=== PATIENT | male | born 1940 | race Caucasian/White ===

== ENCOUNTER → 2017-01-10 | Outpatient (CLI) | payer MEDICARE, OTHER ==
[2017-01-10 09:17] LABS: CH 30.8; CHCM 33.9; HCT 45.6 % (39.0-53.0); HDW 2.62; HGB 15.8 gm/dL (13.0-17.5); MCH 31.5 pg (25.0-35.0); MCHC 34.6 g/dL (31.0-37.0); MCV 91.2 fL (80.0-100.0); Mean Platelet Volume 7.4; RDW 12.6 % (11.5-15.5); WBC 7.2 k/uL (3.8-10.6)
[2017-01-10 09:18] LABS: Appearance,Urine Clear (Clear); Bilirubin,Urine Negative (Negative); Glucose,Urine (UA) Negative (Negative); Ketones,Urine Negative (Negative); Leukocyte Esterase,Urine Negative (Negative); Nitrite,Urine Negative (Negative); Protein,Urine Negative (Negative); Specific Gravity,Urine 1.014 (1.001-1.035); UA Billing (MACRO vs. MICRO) CHEM; Urobilinogen,Urine <2.0 mg/dL (<2.0)
[2017-01-10 10:17] LABS: ALT 49 U/L (21-72); AST 29 U/L (17-59); Alkaline Phosphatase 118 U/L (38-126); Anion Gap 9 mmol/L; Blood Urea Nitrogen 29 mg/dL (9-20); Calcium 9.5 mg/dL (8.4-10.2); Carbon Dioxide 27 mmol/L (22-30); Chloride 106 mmol/L (98-107); Cholesterol 174 mg/dL (<200); Glucose 105 mg/dL (74-99); HDL Cholesterol 45 mg/dL (40-60); Non-African American GFR(MDRD) >60 (>60 ml/min/1.73 sqM); Potassium 4.5 mmol/L (3.5-5.1); Sodium 142 mmol/L (137-145); Triglycerides 119 mg/dL (<150)
== END | disposition home or self-care (01) ==
LOC: LABWHC1 08:50
PROVIDERS: ATTEND Internal Medicine
DX: Z00.00 Encounter for general adult medical examination without abnormal findings (principal); E78.5 Hyperlipidemia, unspecified; I10 Essential (primary) hypertension; Z12.5 Encounter for screening for malignant neoplasm of prostate
CPT/HCPCS: 80061; 80053; 85027; 81003; 36415; G0103

== ENCOUNTER 2018-05-19 10:31 | Emergency (ER) | payer MEDICARE, OTHER ==
[2018-05-19 10:49] VITALS: BP 128/86; PULSE 68; RESP 20; TEMP 97.8
--- NOTE | 2018-05-19 11:44 | ED ---
General Adult HPI - General Chief complaint: ENT Stated complaint: nosebleed x 2 days sent by Time Seen by Provider: 05/19/18 11:17 Source: patient, RN notes reviewed Mode of arrival: ambulatory Limitations: no limitations - History of Present Illness Initial comments: Patient 77-year-old male presenting to the emergency room today with a chief complaint of epistaxis. Patient states that he's had nosebleeds off and on over the last 3 days. Patient does admit that bleeding started again this morning when he woke up. Patient states he is able to get the bleeding to stop. States that not having any active bleeding at this time. Patient does admit to nosebleeds in the past. Patient denies any other complaints or symptoms at this time. They do admit the child to make an appointment with ENT but were unable to get into the office today so they came here to the emergency room. Patient's not on any blood thinners. - Related Data Home Medications Medication Instructions Recorded Confirmed Acetaminophen Tab [Tylenol] 325 mg PO Q6HR 05/19/18 05/19/18 Enalapril/Hydrochlorothiazide 1 tab PO DAILY 05/19/18 05/19/18 [Vaseretic 5-12.5 mg] [facility] (Unknown) 1 drop LEFT EYE BID 05/19/18 Zyquill (Unknown) 1 tab PO DAILY PRN 05/19/18 05/19/18 Allergies Allergy/AdvReac Type Severity Reaction Status Date / Time No Known Allergies Allergy Verified 05/19/18 11:28 Review of Systems ROS Statement: Those systems with pertinent positive or pertinent negative responses have been documented in the HPI. ROS Other: All systems not noted in ROS Statement are negative. Past Medical History Past Medical History: Hypertension History of Any Multi-Drug Resistant Organisms: None Reported Past Psychological History: No Psychological Hx Reported Smoking Status: Never smoker Past Alcohol Use History: Rare Past Drug Use History: None Reported General Exam - General Exam Comments Initial Comments: General: The patient is awake and alert, in no distress, and does not appear acutely ill. Eye: Pupils are equal, round and reactive to light, extra-ocular movements are intact. No nystagmus. There is normal conjunctiva bilaterally. No signs of icterus. Ears, nose, mouth and throat: There are moist mucous membranes and no oral lesions. Patient has no active bleeding. Dry blood in the right nostril. Posterior pharynx clear. Neck: The neck is supple, there is no tenderness or JVD. Musculoskeletal: Normal ROM, no tenderness. Strength 5/5. Sensation intact. Pulses equal bilaterally 2+. Neurological: A&O x 3. CN II-XII intact, There are no obvious motor or sensory deficits. Coordination appears grossly intact. Speech is normal. Skin: Skin is warm and dry and no rashes or lesions are noted. Psychiatric: Cooperative, appropriate mood & affect, normal judgment. Limitations: no limitations Course Vital Signs 05/19/18 10:46 Temperature 97.8 F Pulse Rate 68 Respiratory 20 Rate Blood Pressure 128/86 O2 Sat by Pulse 98 Oximetry Medical Decision Making - Medical Decision Making Patient has no active bleeding here in the emergency room. His vitals are stable. He is not on any blood thinners. Patient will be discharged home to follow up with ENT. Patient is advised to use nasal clamp bleeding recurs. Advised return here to the emergency room symptoms increase or worsen or for any other concerns. Disposition Clinical Impression: Epistaxis Disposition: HOME SELF-CARE Condition: Good Instructions: Nosebleed (ED) Additional Instructions: Please use nasal clamp if bleeding recurs. Please leave it in place for 20 minutes. If bleeding uncontrolled please return here to the emergency room. Please try to follow-up with ENT over the next 2 days as discussed. Is patient prescribed a controlled substance at d/c from ED?: No Referrals: Jose Jones MD [Primary Care Provider] - 1-2 days Andrew Turner MD [STAFF PHYSICIAN] - 1-2 days Time of Disposition: 11:43
== END 2018-05-19 12:03 | disposition home or self-care (01) ==
LOC: EC 10:31
DX: R04.0 Epistaxis (principal); I10 Essential (primary) hypertension; Z79.899 Other long term (current) drug therapy
CPT/HCPCS: 99283

== ENCOUNTER 2019-05-24 09:45 | Emergency (ER) | payer MEDICARE, OTHER ==
[2019-05-24] MEDS ORDERED: ONDANSETRON 4 MG/2 ML VIAL IVP STA (10:43)
[2019-05-24] MEDS ORDERED: KETOROLAC 30 MG/ML 1 ML VIAL IVP STA (10:43)
[2019-05-24] MEDS ORDERED: SODIUM CHLORIDE 0.9% 1,000 ML IV STA (10:43)
[2019-05-24 11:08] LABS: Basophils % (A) 0 %; Eosinophils # (A) 0.1 k/uL (0-0.7); Eosinophils % (A) 1 %; HCT 47.4 % (39.0-53.0); HGB 16.4 gm/dL (13.0-17.5); Lymphocytes # (A) 1.2 k/uL (1.0-4.8); Lymphocytes % (A) 11 %; MCH 31.5 pg (25.0-35.0); MCHC 34.5 g/dL (31.0-37.0); MCV 91.4 fL (80.0-100.0); Mean Platelet Volume 8.3; Monocytes # (A) 0.6 k/uL (0-1.0); Monocytes % (A) 5 %; Neutrophils # (A) 9.6 k/uL (1.3-7.7); Neutrophils % (A) 83 %; Platelet Count 153 k/uL (150-450); RBC 5.19 m/uL (4.30-5.90); RDW 12.5 % (11.5-15.5); WBC 11.5 k/uL (3.8-10.6)
[2019-05-24 11:18] LABS: Partial Thromboplastin Time 26.1 sec (22.0-30.0); Prothrombin Time 10.7 sec (9.0-12.0)
[2019-05-24 11:20] LABS: Albumin 4.2 g/dL (3.5-5.0); Calcium 9.6 mg/dL (8.4-10.2); Potassium 4.3 mmol/L (3.5-5.1); Total Bilirubin 2.3 mg/dL (0.2-1.3); Total Protein 7.2 g/dL (6.3-8.2)
--- NOTE | 2019-05-24 11:33 | CT ---
EXAMINATION TYPE: CT abdomen pelvis wo con DATE OF EXAM: 05/24/2019 COMPARISON: None HISTORY: Lt flank pain CT DLP: 880.6 mGycm Automated exposure control for dose reduction was used. TECHNIQUE: Helical acquisition of images was performed from the lung bases through the pelvis. FINDINGS: LUNG BASES: Bibasilar subsegmental atelectasis. Heart is enlarged. Trace pericardial fluid. Small hia nabil hernia. LIVER/GB: Anterior position of the gallbladder without cholelithiasis. Unenhanced liver is unremarkab le. PANCREAS: No significant abnormality is seen. SPLEEN: No significant abnormality is seen. ADRENALS: No significant abnormality is seen. KIDNEYS: There is an obstructing left mid ureteral calculus measuring 3 mm. There appears to create m ild hydronephrosis however there is suboptimal discernment of degree of hydronephrosis given the susp ected bilateral renal sinus cysts and lack of contrast. On the right there is dilatation of the renal sinus and upper pole collecting system with suspicion for renal sinus cysts on this side as well. Owusu perimposed. Hyperdense 1.2 cm right lower pole partially exophytic renal lesion is marked on image 73. 2.6 cm ant erior midpole right renal cyst is also seen. Bilateral nonspecific perinephric fat stranding. Uretero pelvic junction obstruction is possible FREE AIR: No free air is visualized ADENOPATHY: No greater than 1 cm short axis lymph nodes in the abdomen or pelvis. REPRODUCTIVE ORGANS: Prostate gland is mildly enlarged measuring 5.5 cm in transverse dimension URINARY BLADDER: There is some low-density fat attenuation of the anterior urinary bladder near a ur achal remnant anteriorly. This could be chronic fat deposition from chronic cystitis. This could be f urther assessed with CT cystography or direct visualization. OSSEOUS STRUCTURES: Nonspecific sclerotic lesion of the left femoral neck. This may represent a smal l bone island. Moderate degenerative changes of the spine. Very minimal anterolisthesis of L4 on L5 i s likely on a degenerative basis. BOWEL: Small hiatal hernia. Colonic diverticulosis without evidence of diverticulitis. Appendix is w ithin normal limits. Some lipomatous hypertrophy of the ileocecal valve. IMPRESSION: 1. OBSTRUCTING 3 MM LEFT MID URETERAL CALCULUS CREATING AT LEAST MILD LEFT-SIDED HYDRONEPHROSIS. DEGR EE OF HYDRONEPHROSIS IS DIFFICULT TO DISTINGUISH GIVEN THE MULTIPLE SUSPECTED RENAL SINUS CYSTS. 2. INDETERMINATE RIGHT RENAL LESION MEASURING 1.2 CM FOR WHICH FURTHER NONEMERGENT CHARACTERIZATION W ITH THREE-PHASE ENHANCED CT ABDOMEN IS RECOMMENDED. 3. URACHAL REMNANT IS SEEN WITH SOME ADJACENT FAT ATTENUATION, POSSIBLY ON THE BASIS OF CHRONIC CYSTI TIS. THIS COULD BE FURTHER EVALUATED WITH CT CYSTOGRAM OR DIRECT VISUALIZATION. 4. DILATED RIGHT RENAL PELVIS WITH SUSPECTED RENAL SINUS CYSTS. DILATED PELVIS COULD BE ON THE BASIS OF URETERAL STRICTURE.
[2019-05-24 12:50] LABS: Appearance,Urine Clear (Clear); Bilirubin,Urine Negative (Negative); Blood,Urine Moderate (Negative); Color,Urine Yellow; Glucose,Urine (UA) Negative (Negative); Ketones,Urine Negative (Negative); Leukocyte Esterase,Urine Negative (Negative); Mucus,Urine Few /hpf; Nitrite,Urine Negative (Negative); Protein,Urine Trace (Negative); RBC,Urine >182 /hpf (0-5); Specific Gravity,Urine 1.023 (1.001-1.035); Urobilinogen,Urine <2.0 mg/dL (<2.0); WBC,Urine 3 /hpf (0-5)
--- NOTE | 2019-05-24 13:32 | ED ---
Abdominal Pain HPI - General Chief Complaint: Abdominal Pain Stated Complaint: kidney stones Time Seen by Provider: 05/24/19 09:45 Source: patient, family Mode of arrival: ambulatory Limitations: no limitations - History of Present Illness Initial Comments: The patient is an 78-year-old male past medical history of hypertension presents emergency room with reported left flank pain. The pain started on Thursday. He states that it wraps around to his left lower quadrant. It is described as a sharp shooting pain. No history of similar in the past. Denies any associated urinary changes to include dysuria, hematuria or difficulty voiding. Denies any changes in his bowel movements include diarrhea, constipation, stools or hematochezia. Last bowel movement was this morning. He did see his primary care physician, Dr. Jones in office yesterday. Dr. Jones did run blood work and a urinalysis. He was told that it was either diverticulitis or kidney stones. He is placed on tramadol and an antibiotic. The patient has been taking medications as directed however reports that his pain is still 7 out of 10. He did for presents emergency room today for further pain control and evaluation. States he has had dry heaves without vomiting. Denies hematemesis. Denies any chest pain or shortness. No history of kidney stones in the past. No abdominal trauma. There are no alleviating, precipitating or modifying factors - Related Data Home Medications Medication Instructions Recorded Confirmed Enalapril/Hydrochlorothiazide 1 tab PO DAILY 05/19/18 05/25/19 [Vaseretic 5-12.5 mg] Brimonidine Tartrate [Alphagan P 1 drops LEFT EYE BID 05/25/19 05/25/19 0.2% Ophth Soln] Latanoprost/Pf [Latanoprost 0.005% 1 drop BOTH EYES DAILY 05/25/19 05/25/19 Eye Drop] Previous Rx's Medication Instructions Recorded Hydrocodone/Acetaminophen [Bristol 1 tab PO Q6HR PRN #12 tab 05/24/19 5-325] Tamsulosin [Flomax] 0.4 mg PO DAILY #7 cap 05/24/19 Apixaban [Eliquis] 5 mg PO BID #60 tab 05/28/19 Metoprolol Tartrate [Lopressor] 25 mg PO BID #60 tab 05/28/19 Allergies Allergy/AdvReac Type Severity Reaction Status Date / Time No Known Allergies Allergy Verified 05/25/19 18:08 Review of Systems ROS Statement: Those systems with pertinent positive or pertinent negative responses have been documented in the HPI. ROS Other: All systems not noted in ROS Statement are negative. Past Medical History Past Medical History: Hypertension Additional Past Medical History / Comment(s): glaucoma History of Any Multi-Drug Resistant Organisms: None Reported Past Surgical History: No Surgical Hx Reported Past Psychological History: No Psychological Hx Reported Smoking Status: Never smoker Past Alcohol Use History: Rare Past Drug Use History: None Reported General Exam Limitations: no limitations General appearance: alert, in distress Head exam: Present: atraumatic, normocephalic, normal inspection Eye exam: Present: normal appearance, PERRL, EOMI. Absent: scleral icterus, conjunctival injection, periorbital swelling ENT exam: Present: normal exam, mucous membranes moist Neck exam: Present: normal inspection. Absent: tenderness, meningismus, lymphadenopathy Respiratory exam: Present: normal lung sounds bilaterally. Absent: respiratory distress, wheezes, rales, rhonchi, stridor Cardiovascular Exam: Present: regular rate, normal rhythm, normal heart sounds. Absent: systolic murmur, diastolic murmur, rubs, gallop, clicks GI/Abdominal exam: Present: soft, tenderness (left flank and llq), normal bowel sounds. Absent: distended, guarding, rebound, rigid Extremities exam: Present: normal inspection, full ROM, normal capillary refill. Absent: tenderness, pedal edema, joint swelling, calf tenderness Back exam: Present: normal inspection Neurological exam: Present: alert, oriented X3, CN II-XII intact Psychiatric exam: Present: normal affect, normal mood Skin exam: Present: warm, dry, intact, normal color. Absent: rash Course Vital Signs 05/24/19 05/24/19 05/24/19 09:46 12:28 13:45 Temperature 97.7 F 97.2 F L Pulse Rate 95 71 68 Respiratory 18 20 18 Rate Blood Pressure 120/82 118/73 122/70 O2 Sat by Pulse 95 97 97 Oximetry Medical Decision Making - Medical Decision Making Upon arrival the patient was placed into room 19. A thorough history and physical exam was performed. IV is established. Patient was given 30 mg of Toradol for pain control and 4 mg of Zofran for nausea. To provide the patient with a liter bolus of normal saline. Laboratory studies were conducted. The patient was sent over for CT of his abdomen and pelvis. CBC shows white blood for count of 11.5. Coags are normal. Creatinine elevated at 2.0 from a bas tamar of 1.3. Urinalysis shows moderate blood, greater than 182 red blood cells, few mucus without bacteria. CT of the patient's abdomen and pelvis demonstrates obstructing 3 mm left mid ureteral calculus creating increased mild left sided hydronephrosis. Indeterminate right renal lesion measuring 1.2 cm. Dilated right renal pelvis a suspected renal sinus cyst. I discussed results with the patient. He is reevaluated and does have improvement in his pain and nausea. I called and discussed the case with Dr. Perez who stated that the patient can go home if his pain is controlled. He needs to follow-up with him this week. He requested I place him on Flomax and give him something for pain control. The patient is placed on Bristol. He does sign an opioid start talking form. Side effect profile was discussed with the patient. The patient will be discharged home and given follow-up information for Dr. Perez's office. If he has any new or worsening symptoms he should return to the emergency room. I did stress the patient's daily from Toradol because of his acute renal failure must have lab studies performed to ensure improvement in his kidney function. The patient is given a strainer. The patient was discharged home in stable condition - Lab Data Result diagrams: 05/24/19 10:11 05/24/19 10:11 Lab Results 05/24/19 05/24/19 05/24/19 Range/Units 10:11 10:11 10:11 WBC 11.5 H (3.8-10.6) k/uL RBC 5.19 (4.30-5.90) m/uL Hgb 16.4 (13.0-17.5) gm/dL Hct 47.4 (39.0-53.0) % MCV 91.4 (80.0-100.0) fL MCH 31.5 (25.0-35.0) pg MCHC 34.5 (31.0-37.0) g/dL RDW 12.5 (11.5-15.5) % Plt Count 153 (150-450) k/uL Neutrophils % 83 % Lymphocytes % 11 % Monocytes % 5 % Eosinophils % 1 % Basophils % 0 % Neutrophils # 9.6 H (1.3-7.7) k/uL Lymphocytes # 1.2 (1.0-4.8) k/uL Monocytes # 0.6 (0-1.0) k/uL Eosinophils # 0.1 (0-0.7) k/uL Basophils # 0.0 (0-0.2) k/uL PT (9.0-12.0) sec INR (<1.2) APTT (22.0-30.0) sec Sodium 143 (137-145) mmol/L Potassium 4.3 (3.5-5.1) mmol/L Chloride 104 (98-107) mmol/L Carbon Dioxide 28 (22-30) mmol/L Anion Gap 11 mmol/L BUN 45 H (9-20) mg/dL Creatinine 2.05 H (0.66-1.25) mg/dL Est GFR (CKD-EPI)AfAm 34 (>60 ml/min/1.73 sqM) Est GFR (CKD-EPI)NonAf 30 (>60 ml/min/1.73 sqM) Glucose 109 H (74-99) mg/dL Plasma Lactic Acid Daniel 1.4 (0.7-2.0) mmol/L Calcium 9.6 (8.4-10.2) mg/dL Total Bilirubin 2.3 H (0.2-1.3) mg/dL AST 24 (17-59) U/L ALT 34 (21-72) U/L Alkaline Phosphatase 92 (38-126) U/L Total Protein 7.2 (6.3-8.2) g/dL Albumin 4.2 (3.5-5.0) g/dL Lipase 44 (23-300) U/L Urine Color Urine Appearance (Clear) Urine pH (5.0-8.0) Ur Specific Mose[place] (1.001-1.035) Urine Protein (Negative) Urine Glucose (UA) (Negative) Urine Ketones (Negative) Urine Blood (Negative) Urine Nitrite (Negative) Urine Bilirubin (Negative) Urine Urobilinogen (<2.0) mg/dL Ur Leukocyte Esterase (Negative) Urine RBC (0-5) /hpf Urine WBC (0-5) /hpf Urine Mucus (None) /hpf 12/10/19 12/10/19 Range/Units 10:11 12:32 WBC (3.8-10.6) k/uL RBC (4.30-5.90) m/uL Hgb (13.0-17.5) gm/dL Hct (39.0-53.0) % MCV (80.0-100.0) fL MCH (25.0-35.0) pg MCHC (31.0-37.0) g/dL RDW (11.5-15.5) % Plt Count (150-450) k/uL Neutrophils % % Lymphocytes % % Monocytes % % Eosinophils % % Basophils % % Neutrophils # (1.3-7.7) k/uL Lymphocytes # (1.0-4.8) k/uL Monocytes # (0-1.0) k/uL Eosinophils # (0-0.7) k/uL Basophils # (0-0.2) k/uL PT 10.7 (9.0-12.0) sec INR 1.0 (<1.2) APTT 26.1 (22.0-30.0) sec Sodium (137-145) mmol/L Potassium (3.5-5.1) mmol/L Chloride (98-107) mmol/L Carbon Dioxide (22-30) mmol/L Anion Gap mmol/L BUN (9-20) mg/dL Creatinine (0.66-1.25) mg/dL Est GFR (CKD-EPI)AfAm (>60 ml/min/1.73 sqM) Est GFR (CKD-EPI)NonAf (>60 ml/min/1.73 sqM) Glucose (74-99) mg/dL Plasma Lactic Acid Daniel (0.7-2.0) mmol/L Calcium (8.4-10.2) mg/dL Total Bilirubin (0.2-1.3) mg/dL AST (17-59) U/L ALT (21-72) U/L Alkaline Phosphatase (38-126) U/L Total Protein (6.3-8.2) g/dL Albumin (3.5-5.0) g/dL Lipase (23-300) U/L Urine Color Yellow Urine Appearance Clear (Clear) Urine pH 5.0 (5.0-8.0) Ur Specific [place] 1.023 (1.001-1.035) Urine Protein Trace H (Negative) Urine Glucose (UA) Negative (Negative) Urine Ketones Negative (Negative) Urine Blood Moderate H (Negative) Urine Nitrite Negative (Negative) Urine Bilirubin Negative (Negative) Urine Urobilinogen <2.0 (<2.0) mg/dL Ur Leukocyte Esterase Negative (Negative) Urine RBC >182 H (0-5) /hpf Urine WBC 3 (0-5) /hpf Urine Mucus Few H (None) /hpf Disposition Clinical Impression: Left ureteral stone, YNES (acute kidney injury) Disposition: HOME SELF-CARE Condition: Stable Instructions (If sedation given, give patient instructions): Kidney Stones (ED) Additional Instructions: Please call and make an appointment with urologist. Strain all urine. You need to have repeat blood work to ensure that your kidney function is normal eyes. Return to the emergency room for any new or worsening symptoms Prescriptions: Tamsulosin [Flomax] 0.4 mg PO DAILY #7 cap Hydrocodone/Acetaminophen [Bristol 5-325] 1 tab PO Q6HR PRN #12 tab PRN Reason: Pain Is patient prescribed a controlled substance at d/c from ED?: Yes When asked, does pt state using other controlled substances?: No If prescribed controlled substance>3 days was MAPS reviewed?: Prescribed <3 Days If opioid is for acute pain is fill amount 7 days or less?: Yes If Rx opioid, was Start Talking consent form obtained?: Yes Referrals: Jose Jones MD [Primary Care Provider] - 1-2 days Donell Smith MD [STAFF PHYSICIAN] - 1-2 days Time of Disposition: 13:32
[2019-05-24 13:51] VITALS: BP 122/70; PULSE 68; RESP 18; TEMP 97.2
== END 2019-05-24 13:45 | disposition home or self-care (01) ==
LOC: EC 09:45
DX: N13.2 Hydronephrosis with renal and ureteral calculous obstruction (principal); N17.9 Acute kidney failure, unspecified; N28.89 Other specified disorders of kidney and ureter; I10 Essential (primary) hypertension; H40.9 Unspecified glaucoma; Z79.899 Other long term (current) drug therapy
CPT/HCPCS: 99284; 96374; 96375; 96361; 36415; 80053; 83605; 83690; 85025; 85610; 85730; 81001; 74176; J2405; J1885

== ENCOUNTER 2019-05-25 14:29 | Observation (INO) | payer MEDICARE, OTHER ==
[2019-05-25] MEDS ORDERED: MORPHINE SULFATE 4 MG/ML SYRINGE IVP STA (14:43)
[2019-05-25] MEDS ORDERED: KETOROLAC 30 MG/ML 1 ML VIAL IVP STA (14:43)
[2019-05-25] MEDS ORDERED: ONDANSETRON 4 MG/2 ML VIAL IVP STA (14:43)
[2019-05-25 15:03] LABS: Basophils % (A) 0 %; Eosinophils # (A) 0.2 k/uL (0-0.7); Eosinophils % (A) 1 %; HCT 45.2 % (39.0-53.0); HGB 14.9 gm/dL (13.0-17.5); Lymphocytes # (A) 0.6 k/uL (1.0-4.8); Lymphocytes % (A) 5 %; MCHC 33.1 g/dL (31.0-37.0); MCV 90.5 fL (80.0-100.0); Mean Platelet Volume 8.5; Monocytes # (A) 0.6 k/uL (0-1.0); Monocytes % (A) 5 %; Neutrophils # (A) 11.1 k/uL (1.3-7.7); Neutrophils % (A) 89 %; Platelet Count 120 k/uL (150-450); RBC 4.99 m/uL (4.30-5.90); RDW 12.3 % (11.5-15.5); WBC 12.5 k/uL (3.8-10.6)
[2019-05-25 15:10] LABS: Albumin 3.8 g/dL (3.5-5.0); Calcium 8.6 mg/dL (8.4-10.2); Total Bilirubin 2.2 mg/dL (0.2-1.3); Total Protein 6.8 g/dL (6.3-8.2)
--- NOTE | 2019-05-25 15:33 | XR ---
EXAMINATION TYPE: XR KUB DATE OF EXAM: 05/25/2019 3:14 PM CLINICAL HISTORY: Left-sided nephrolithiasis. Decreased urine output. TECHNIQUE: Single supine KUB image of the abdomen is obtained. COMPARISON: CT dated 05/24/2019. FINDINGS: The previously seen left mid ureteral calculus on the CT of 05/24/2019 is not well seen. So me bowel gas overlying the mid abdomen. No calculus is appreciated pelvis. Degenerative changes of th e lumbosacral junction. Lung bases are well aerated. No dilated large or small bowel. IMPRESSION: The previously seen obstructing 3 mm calculus within the left ureter is not seen radiographically and could be obscured by bowel, nonradiopaque, or passed in the interim.
[2019-05-25 16:45] LABS: Appearance,Urine Clear (Clear); Bacteria,Urine Rare /hpf; Bilirubin,Urine Negative (Negative); Blood,Urine Moderate (Negative); Color,Urine Yellow; Glucose,Urine (UA) Negative (Negative); Ketones,Urine Negative (Negative); Leukocyte Esterase,Urine Moderate (Negative); Mucus,Urine Rare /hpf; Nitrite,Urine Negative (Negative); Protein,Urine Negative (Negative); RBC,Urine 58 /hpf (0-5); Specific Gravity,Urine 1.025 (1.001-1.035); Urobilinogen,Urine <2.0 mg/dL (<2.0); WBC,Urine 13 /hpf (0-5)
[2019-05-25] MEDS ORDERED: cefTRIAXone IN SWFI 1,000 MG/10 ML SYRINGE IVP STA (16:47)
--- NOTE | 2019-05-25 17:13 | ED ---
Abdominal Pain HPI - General Chief Complaint: Abdominal Pain Stated Complaint: Kidney pain Time Seen by Provider: 05/25/19 14:34 Source: patient Mode of arrival: ambulatory Limitations: no limitations - History of Present Illness Initial Comments: The patient is an 78-year-old male with minimal past medical history presents to the emergency room with reported left sided flank pain. Patient was seen in the emergency department yesterday for similar symptoms. He was diagnosed with a 3 mm mid ureteral stone. Urine was clean. The patient did have a slight elevation in his creatinine. I discussed the case with Dr. Perez who requested that the patient be sent home with pain medications. I did prescribe him Warren and Flomax. Patient states that he has been taking the medications as directed however the Warren is not touching his pain. He felt okay last night but when he woke up this morning he was having 11/10 pain. He felt nauseated without vomiting. No recorded fevers at home. states that he's had a decrease in his urine output and the urine that he is producing is gelatinous in nature. The patient's states he's been drinking fluid however reports that it isn't enough. He denies any additional symptoms include diarrhea, constipation, melanotic stools or hematochezia. There are no other alleviating, precipitating or modifying factors - Related Data Home Medications Medication Instructions Recorded Confirmed Enalapril/Hydrochlorothiazide 1 tab PO DAILY 05/19/18 05/25/19 [Vaseretic 5-12.5 mg] Brimonidine Tartrate [Alphagan P 1 drops LEFT EYE BID 05/25/19 05/25/19 0.2% Ophth Soln] Latanoprost/Pf [Latanoprost 0.005% 1 drop BOTH EYES DAILY 05/25/19 05/25/19 Eye Drop] Previous Rx's Medication Instructions Recorded Hydrocodone/Acetaminophen [Warren 1 tab PO Q6HR PRN #12 tab 05/24/19 5-325] Tamsulosin [Flomax] 0.4 mg PO DAILY #7 cap 05/24/19 Apixaban [Eliquis] 5 mg PO BID #60 tab 05/28/19 Metoprolol Tartrate [Lopressor] 25 mg PO BID #60 tab 05/28/19 Allergies Allergy/AdvReac Type Severity Reaction Status Date / Time No Known Allergies Allergy Verified 05/25/19 18:08 Review of Systems ROS Statement: Those systems with pertinent positive or pertinent negative responses have been documented in the HPI. ROS Other: All systems not noted in ROS Statement are negative. Past Medical History Past Medical History: Hypertension Additional Past Medical History / Comment(s): glaucoma History of Any Multi-Drug Resistant Organisms: None Reported Past Surgical History: No Surgical Hx Reported Past Psychological History: No Psychological Hx Reported Smoking Status: Never smoker Past Alcohol Use History: Rare Past Drug Use History: None Reported General Exam Limitations: no limitations General appearance: alert, in distress Head exam: Present: atraumatic, normocephalic, normal inspection Eye exam: Present: normal appearance, PERRL, EOMI. Absent: scleral icterus, conjunctival injection, periorbital swelling ENT exam: Present: normal exam, mucous membranes moist Neck exam: Present: normal inspection. Absent: tenderness, meningismus, lymphadenopathy Respiratory exam: Present: normal lung sounds bilaterally. Absent: respiratory distress, wheezes, rales, rhonchi, stridor Cardiovascular Exam: Present: regular rate, normal rhythm, normal heart sounds. Absent: systolic murmur, diastolic murmur, rubs, gallop, clicks GI/Abdominal exam: Present: soft, normal bowel sounds. Absent: distended, tenderness, guarding, rebound, rigid Extremities exam: Present: normal inspection, full ROM, normal capillary refill. Absent: tenderness, pedal edema, joint swelling, calf tenderness Back exam: Present: normal inspection Neurological exam: Present: alert, oriented X3, CN II-XII intact Psychiatric exam: Present: normal affect, normal mood Skin exam: Present: warm, dry, intact, normal color. Absent: rash Course Vital Signs 05/25/19 05/25/19 14:30 16:12 Temperature 98.6 F 99.4 F Pulse Rate 105 H 79 Respiratory 18 16 Rate Blood Pressure 138/85 103/63 O2 Sat by Pulse 95 96 Oximetry Medical Decision Making - Medical Decision Making Upon arrival the patient was placed into room 18. A thorough history and ph ysical exam is performed. Peripheral IV is established. He is given a liter bolus of normal saline, Zofran, morphine and Toradol. I did repeat laboratory studies. White blood cell count is 12.5. Platelets 120. BUN 50. Creatinine 2. Urinalysis shows moderate blood, moderate leukocyte esterase, 58 red blood cells, 13 white blood cells, rare bacteria. I performed a KUB which failed to demonstrate the kidney stone. I reevaluated the patient and he had return of his pain. I did order additional pain medications. I did discuss the diagnosis, differential and treatment options. As the patient continues to have pain refractory to IVP medications I did recommend admission. I called and discussed the case with Dr. Clarke. Dr. Clarke does present to the emergency department and evaluates the patient himself. Bridging orders were placed. - Lab Data Result diagrams: 05/25/19 14:50 05/26/19 08:56 Lab Results 05/25/19 05/25/19 05/25/19 Range/Units 14:50 14:50 16:20 WBC 12.5 H (3.8-10.6) k/uL RBC 4.99 (4.30-5.90) m/uL Hgb 14.9 (13.0-17.5) gm/dL Hct 45.2 (39.0-53.0) % MCV 90.5 (80.0-100.0) fL MCH 30.0 (25.0-35.0) pg MCHC 33.1 (31.0-37.0) g/dL RDW 12.3 (11.5-15.5) % Plt Count 120 L (150-450) k/uL Neutrophils % 89 % Lymphocytes % 5 % Monocytes % 5 % Eosinophils % 1 % Basophils % 0 % Neutrophils # 11.1 H (1.3-7.7) k/uL Lymphocytes # 0.6 L (1.0-4.8) k/uL Monocytes # 0.6 (0-1.0) k/uL Eosinophils # 0.2 (0-0.7) k/uL Basophils # 0.0 (0-0.2) k/uL Sodium 138 (137-145) mmol/L Potassium 4.0 (3.5-5.1) mmol/L Chloride 106 (98-107) mmol/L Carbon Dioxide 23 (22-30) mmol/L Anion Gap 9 mmol/L BUN 50 H (9-20) mg/dL Creatinine 2.02 H (0.66-1.25) mg/dL Est GFR (CKD-EPI)AfAm 35 (>60 ml/min/1.73 sqM) Est GFR (CKD-EPI)NonAf 30 (>60 ml/min/1.73 sqM) Glucose 153 H (74-99) mg/dL Calcium 8.6 (8.4-10.2) mg/dL Magnesium (1.6-2.3) mg/dL Total Bilirubin 2.2 H (0.2-1.3) mg/dL AST 25 (17-59) U/L ALT 26 (21-72) U/L Alkaline Phosphatase 84 (38-126) U/L Total Protein 6.8 (6.3-8.2) g/dL Albumin 3.8 (3.5-5.0) g/dL TSH (0.465-4.680) mIU/L Urine Color Yellow Urine Appearance Clear (Clear) Urine pH 5.0 (5.0-8.0) Ur Specific [place] 1.025 (1.001-1.035) Urine Protein Negative (Negative) Urine Glucose (UA) Negative (Negative) Urine Ketones Negative (Negative) Urine Blood Moderate H (Negative) Urine Nitrite Negative (Negative) Urine Bilirubin Negative (Negative) Urine Urobilinogen <2.0 (<2.0) mg/dL Ur Leukocyte Esterase Moderate H (Negative) Urine RBC 58 H (0-5) /hpf Urine WBC 13 H (0-5) /hpf Urine Bacteria Rare H (None) /hpf Urine Mucus Rare H (None) /hpf 05/26/19 05/26/19 Range/Units 08:56 08:58 WBC (3.8-10.6) k/uL RBC (4.30-5.90) m/uL Hgb (13.0-17.5) gm/dL Hct (39.0-53.0) % MCV (80.0-100.0) fL MCH (25.0-35.0) pg MCHC (31.0-37.0) g/dL RDW (11.5-15.5) % Plt Count (150-450) k/uL Neutrophils % % Lymphocytes % % Monocytes % % Eosinophils % % Basophils % % Neutrophils # (1.3-7.7) k/uL Lymphocytes # (1.0-4.8) k/uL Monocytes # (0-1.0) k/uL Eosinophils # (0-0.7) k/uL Basophils # (0-0.2) k/uL Sodium 139 (137-145) mmol/L Potassium 3.9 (3.5-5.1) mmol/L Chloride 107 (98-107) mmol/L Carbon Dioxide 26 (22-30) mmol/L Anion Gap 6 mmol/L BUN 44 H (9-20) mg/dL Creatinine 1.79 H (0.66-1.25) mg/dL Est GFR (CKD-EPI)AfAm 41 (>60 ml/min/1.73 sqM) Est GFR (CKD-EPI)NonAf 35 (>60 ml/min/1.73 sqM) Glucose 116 H (74-99) mg/dL Calcium 8.4 (8.4-10.2) mg/dL Magnesium 2.2 (1.6-2.3) mg/dL Total Bilirubin (0.2-1.3) mg/dL AST (17-59) U/L ALT (21-72) U/L Alkaline Phosphatase (38-126) U/L Total Protein (6.3-8.2) g/dL Albumin (3.5-5.0) g/dL TSH 1.890 (0.465-4.680) mIU/L Urine Color Urine Appearance (Clear) Urine pH (5.0-8.0) Ur Specific [place] (1.001-1.035) Urine Protein (Negative) Urine Glucose (UA) (Negative) Urine Ketones (Negative) Urine Blood (Negative) Urine Nitrite (Negative) Urine Bilirubin (Negative) Urine Urobilinogen (<2.0) mg/dL Ur Leukocyte Esterase (Negative) Urine RBC (0-5) /hpf Urine WBC (0-5) /hpf Urine Bacteria (None) /hpf Urine Mucus (None) /hpf Disposition Clinical Impression: Left ureteral stone, YNES (acute kidney injury) Disposition: ADMITTED IP TO THIS [facility] Condition: Stable Is patient prescribed a controlled substance at d/c from ED?: No Decision to Admit Reason: Admit from EC Decision Date: 05/25/19 Decision Time: 17:13
[2019-05-25] MEDS ORDERED: MORPHINE SULFATE 4 MG/ML SYRINGE IV PRN (17:14)
[2019-05-25] MEDS ORDERED: NALOXONE 0.4 MG/ML 1 ML VIAL IV PRN (17:14)
[2019-05-25] MEDS ORDERED: ONDANSETRON 4 MG/2 ML VIAL IVP PRN (17:14)
[2019-05-25] MEDS: SODIUM CHLORIDE 0.9% 1,000 ML IV SCH (19:40)
[2019-05-25] MEDS ORDERED: HYDROcodone/APAP 5-325MG 1 EACH TAB PO PRN (20:08)
--- NOTE | 2019-05-25 21:03 | P.GSHP ---
History of Present Illness H&P Date: 05/25/19 Chief Complaint: Left ureteral calculus The patient is an 78-year-old male who originally developed left-sided abdominal pain yesterday. The pain was relatively severe and he came to the emergency room where he was evaluated. He was noted to have a 3 mm mid left ureteral c alculus with mild hydronephrosis. His pain improved and he was discharged on [place] and tamsulosin. He said he had no pain through the night and morning but at noon he developed a recurrence of the left abdominal and flank pain. The pain was rated as a 10 out of 10 and associated with some nausea but no vomiting. He had been straining his urine but noted no gross hematuria or passage of calculi. He returned to the emergency room and a KUB was obtained was nondiagnostic as far as locating the calculus. Creatinine was 2.05 yesterday and is 2.0 to today. It had been 1.3 in 01/2019. He continues to have intermittent pain. I discussed further observation with analgesics at home versus observation overnight in the hospital. The patient has chosen the latter as he does not live in [facility]. The patient has no previous history or family history of urolithiasis. He has no history of gross hematuria or urinary tract infection. He has not noted any recent change in his normal voiding pattern. He denies any fever or chills. - Constitutional Constitutional: Reports anorexia, Denies chills, Denies fever - Cardiovascular Cardiovascular: Denies chest pain, Denies palpitations, Denies shortness of breath - Respiratory Respiratory: Denies cough, Denies wheezing - Gastrointestinal Gastrointestinal: Reports as per HPI - Genitourinary (Male) Genitourinary: Reports as per HPI, Denies hematuria, Denies urinary frequency Past Medical History Past Medical History: Hypertension Additional Past Medical History / Comment(s): glaucoma History of Any Multi-Drug Resistant Organisms: None Reported Past Surgical History: No Surgical Hx Reported Past Psychological History: No Psychological Hx Reported Smoking Status: Never smoker Past Alcohol Use History: Rare Past Drug Use History: None Reported Medications and Allergies Home Medications Medication Instructions Recorded Confirmed Type Enalapril/Hydrochlorothiazide 1 tab PO DAILY 05/19/18 05/25/19 History [Vaseretic 5-12.5 mg] Hydrocodone/Acetaminophen [[place] 1 tab PO Q6HR PRN #12 tab 05/24/19 05/25/19 Rx 5-325] Tamsulosin [Flomax] 0.4 mg PO DAILY #7 cap 05/24/19 05/25/19 Rx Brimonidine Tartrate [Alphagan P 1 drops LEFT EYE BID 05/25/19 05/25/19 History 0.2% Ophth Soln] Latanoprost/Pf [Latanoprost 0.005% 1 drop BOTH EYES DAILY 05/25/19 05/25/19 History Eye Drop] Allergies Allergy/AdvReac Type Severity Reaction Status Date / Time No Known Allergies Allergy Verified 05/25/19 18:08 Surgical - Exam Vital Signs Temp Pulse Resp BP Pulse Ox 98.6 F 105 H 18 138/85 95 05/25/19 14:30 05/25/19 14:30 05/25/19 14:30 05/25/19 14:30 05/25/19 14:30 - General well developed, well nourished, moderate distress - ENT no hearing loss - Neck no masses, no lymphadectomy - Respiratory normal expansion, normal respiratory effort - Abdomen Abdomen: soft, non tender, no organomegaly - Genitourinary normal penis with no external lesions, testicles non-tender Results - Labs 05/25/19 14:50 05/25/19 14:50 Abnormal Lab Results - Last 24 Hours (Table) 05/25/19 05/25/19 05/25/19 Range/Units 14:50 14:50 16:20 WBC 12.5 H (3.8-10.6) k/uL Plt Count 120 L (150-450) k/uL Neutrophils # 11.1 H (1.3-7.7) k/uL Lymphocytes # 0.6 L (1.0-4.8) k/uL BUN 50 H (9-20) mg/dL Creatinine 2.02 H (0.66-1.25) mg/dL Glucose 153 H (74-99) mg/dL Total Bilirubin 2.2 H (0.2-1.3) mg/dL Urine Blood Moderate H (Negative) Ur Leukocyte Esterase Moderate H (Negative) Urine RBC 58 H (0-5) /hpf Urine WBC 13 H (0-5) /hpf Urine Bacteria Rare H (None) /hpf Urine Mucus Rare H (None) /hpf Diabetes panel 05/25/19 Range/Units 14:50 Sodium 138 (137-145) mmol/L Potassium 4.0 (3.5-5.1) mmol/L Chloride 106 (98-107) mmol/L Carbon Dioxide 23 (22-30) mmol/L BUN 50 H (9-20) mg/dL Creatinine 2.02 H (0.66-1.25) mg/dL Glucose 153 H (74-99) mg/dL Calcium 8.6 (8.4-10.2) mg/dL AST 25 (17-59) U/L ALT 26 (21-72) U/L Alkaline Phosphatase 84 (38-126) U/L Total Protein 6.8 (6.3-8.2) g/dL Albumin 3.8 (3.5-5.0) g/dL Calcium panel 05/25/19 Range/Units 14:50 Calcium 8.6 (8.4-10.2) mg/dL Albumin 3.8 (3.5-5.0) g/dL Pituitary panel 05/25/19 Range/Units 14:50 Sodium 138 (137-145) mmol/L Potassium 4.0 (3.5-5.1) mmol/L Chloride 106 (98-107) mmol/L Carbon Dioxide 23 (22-30) mmol/L BUN 50 H (9-20) mg/dL Creatinine 2.02 H (0.66-1.25) mg/dL Glucose 153 H (74-99) mg/dL Calcium 8.6 (8.4-10.2) mg/dL Adrenal panel 05/25/19 Range/Units 14:50 Sodium 138 (137-145) mmol/L Potassium 4.0 (3.5-5.1) mmol/L Chloride 106 (98-107) mmol/L Carbon Dioxide 23 (22-30) mmol/L BUN 50 H (9-20) mg/dL Creatinine 2.02 H (0.66-1.25) mg/dL Glucose 153 H (74-99) mg/dL Calcium 8.6 (8.4-10.2) mg/dL Total Bilirubin 2.2 H (0.2-1.3) mg/dL AST 25 (17-59) U/L ALT 26 (21-72) U/L Alkaline Phosphatase 84 (38-126) U/L Total Protein 6.8 (6.3-8.2) g/dL Albumin 3.8 (3.5-5.0) g/dL Assessment and Plan (1) Left ureteral stone Narrative/Plan: The patient's left flank pain appears to be secondary to a 2.7 mm calculus in the mid left ureter. It is unclear if the calculus has migrated since yesterda y. I reviewed the KUB and there is a questionable calcification in the region of the left mid sacrum which measures 2.6 mm but unfortunately there are no previous images for comparison. I explained to the patient and his . In view of the size of the calculus. There is a high likelihood of spontaneous passage provided that he remains comfortable. If the patient has no further episodes of severe pain he may be discharged tomorrow. He will be continued on tamsulosin and will continue to strain his urine. Current Visit: Yes Status: Acute Code(s): N20.1 - CALCULUS OF URETER SNOMED Code(s): 02916839 (2) YNES (acute kidney injury) Narrative/Plan: His acute renal failure is most likely related to a combination of left ureteral obstruction and reduced oral intake since the onset of his pain. His renal function was relatively normal for his age in January. He will be continued on fluids but at least at this point there is no reason to consider placement of a double-J catheter or other urgent intervention. Current Visit: Yes Status: Acute Code(s): N17.9 - ACUTE KIDNEY FAILURE, UNSPECIFIED SNOMED Code(s): 06805735
[2019-05-25] MEDS: BRIMONIDINE TARTRATE 0.2% DROPS 5 ML BTL LEFT EYE SCH (21:59)
[2019-05-26] MEDS: KETOROLAC 30 MG/ML 1 ML VIAL IVP PRN ×3 (03:19→19:17)
[2019-05-26] MEDS: SODIUM CHLORIDE 0.9% 1,000 ML IV SCH ×3 (03:21→23:45)
[2019-05-26] MEDS: TAMSULOSIN 0.4 MG CAP.ER.24H PO SCH (07:12)
[2019-05-26] MEDS: LISINOPRIL-HCTZ 10-12.5 MG 1 EACH TAB PO SCH (07:12)
[2019-05-26] MEDS: BRIMONIDINE TARTRATE 0.2% DROPS 5 ML BTL LEFT EYE SCH ×2 (07:12→21:04)
[2019-05-26] MEDS: LATANOPROST 0.005% OPHTH DROPS 2.5 ML BTL BOTH EYES SCH (07:12)
[2019-05-26 10:30] LABS: Calcium 8.4 mg/dL (8.4-10.2); Potassium 3.9 mmol/L (3.5-5.1)
--- NOTE | 2019-05-26 11:59 | P.PN ---
Progress Note - Text Progress Note Date: 05/26/19 The patient is afebrile. He had intermittent pain through the night and this morning which has required the use of IV morphine however overall he says his pain is much less than it was when he came to the emergency room. The location of his pain has not changed from yesterday. His urine is blood-tinged. He has not passed a calculus that has been recovered. BUN/creatinine have improved at 44/1.79. I told the patient that it remains unclear whether his stone is migrating and whether or not he will be able to spontaneously passed it but statistically a calculus 3 mm or less in diameter has a high likelihood of passage. The patient will be treated with further observation and analgesics. If his pain persists then right ureteroscopy with lithotripsy will be set up for tomorrow.
[2019-05-26] MEDS ORDERED: LIDOCAINE 1% 20 ML VIAL (10MG/ML) FOR IV START INTRADERMA PRN (13:57)
[2019-05-26] MEDS ORDERED: ONDANSETRON 4 MG/2 ML VIAL IVP PRN (13:57)
[2019-05-26] MEDS ORDERED: MORPHINE SULFATE 2 MG/ML SYRINGE IV PRN (13:57)
[2019-05-26] MEDS: LACTATED RINGERS 1,000 ML IV SCH (14:00)
[2019-05-27] MEDS: TAMSULOSIN 0.4 MG CAP.ER.24H PO SCH (07:27)
[2019-05-27] MEDS: LATANOPROST 0.005% OPHTH DROPS 2.5 ML BTL BOTH EYES SCH (07:27)
[2019-05-27] MEDS: LISINOPRIL-HCTZ 10-12.5 MG 1 EACH TAB PO SCH (07:28)
[2019-05-27] MEDS: BRIMONIDINE TARTRATE 0.2% DROPS 5 ML BTL LEFT EYE SCH (07:31)
[2019-05-27] MEDS ORDERED: BISACODYL 10 MG SUPP RECTAL STA (07:49)
[2019-05-27] MEDS: LACTATED RINGERS 1,000 ML IV SCH (11:10)
[2019-05-27] MEDS: SODIUM CHLORIDE 0.9% 1,000 ML IV SCH (11:17)
[2019-05-27] MEDS ORDERED: IV FLUID CONTINUATION 1,000 ML IV ONE (14:50)
--- NOTE | 2019-05-27 15:18 | XR ---
KUB HISTORY: Preop left ureteral calculus From a KUB and 2 images correlated prior KUB 05/25/2019, CT 05/24/2019 No evident bowel obstruction or pneumoperitoneum. Bone mineralization is stable. Lumbar spondylosis i s again noted. Patient's left ureteral calculus noted on CT is not well seen on plain film. IMPRESSION: There are limitations to the exam.
[2019-05-27] MEDS ORDERED: ONDANSETRON 4 MG/2 ML VIAL IVP ONE (15:25)
[2019-05-27] MEDS ORDERED: DEXAMETHASONE SOD PHOSPHATE 4 MG/ML 1 ML VIAL IV ONE (15:25)
[2019-05-27] MEDS ORDERED: ePHEDrine SULFATE/0.9% NACL/PF 50 MG/5 ML SYRINGE IV ONE (15:33)
[2019-05-27] MEDS ORDERED: PHENYLEPHRINE-0.9% NACL SYG 1 MG/10 ML SYRINGE ONE (15:33)
[2019-05-27] MEDS ORDERED: PROPOFOL 10 MG/ML 20 ML VIAL IV ONE (15:33)
[2019-05-27] MEDS ORDERED: SUCCINYLCHOLINE CHLORIDE 100 MG/5 ML SYR IV ONE (15:33)
[2019-05-27] MEDS ORDERED: fentaNYL (PF) 50 MCG/ML 2 ML AMP ONE (15:33)
[2019-05-27] MEDS ORDERED: LIDOCAINE 1% INJ 10MG/ML (20 ML MDV) ONE (15:33)
[2019-05-27] MEDS ORDERED: IOPAMIDOL-370 50ML BTL MISCELLANE ONE ×2 (15:36→15:40)
[2019-05-27] MEDS ORDERED: LACTATED RINGERS 1,000 ML IV ONE (16:01)
--- NOTE | 2019-05-27 16:51 | P.OP ---
Date of Procedure: 05/27/19 Preoperative Diagnosis: left ureteral calculus Postoperative Diagnosis: distal left ureteral calculus Procedure(s) Performed: Cystoscopy with left ureteroscopy, lithotripsy and placement of left double-J catheter Anesthesia: MILTON Surgeon: Corey Clarke Pathology: other (left ureteral calculus) Condition: stable Disposition: PACU Indications for Procedure: the patient is an 78-year-old male who developed severe left flank pain 3 days ago. Computed tomography scan identified a 3 mm calculus in the left ureter at the L4 level. The patient has continued to have intermittent pain which required admission for the purpose of IV narcotics. He has not recovered a calculus. KUB is unable to clearly show whether or not a calculus remains in the left ureter. Cystoscopy with left retrograde and possible left ureteroscopy is planned for treatment. Description of Procedure: The patient was taken the operating suite. He was noted to be in atrial fibrillation. General anesthesia via orotracheal intubation was instituted. He was placed in the dorsal lithotomy position with his legs suspended from padded Gregorio stirrups. The genitalia was prepped with Betadine solution and draped in sterile fashion. The penile and prostatic urethra traversed under direct vision using the 19-S[place] cystoscope sheath and 30 lens. The anterior urethra was unremarkable. The prostatic urethra showed evidence of moderate lateral lobe enlargement. The bladder was examined. Both ureteral orifices were of normal location and configuration. The bladder was free of tumor foreign body and calculus. A distal left retrograde ureterogram was performed using an 8-[place] cone-tipped catheter. A filling defect consistent with a 2.5-3 mm calculus was noted in the left ureter approximately 3 or 4 cm proximal to the ureteral meatus. The ureter was dilated proximal to that. A 0.035 straight Glidewire was advanced through the left ureteral orifice and positioned so the proximal end was in the proximal ureter. The cystoscope was withdrawn. The intramural was initially dilated to 11-S[place] Arabian using the obturator from a 13-S[place] ureteral reentry sheath. The 8.5-[place] semirigid ureteroscope was then passed through the urethra and into the bladder. The ureteroscope would advance through the intramural ureter but could not be advanced adjacent to the stone due to narrowing or edema in the ureter. The ureteroscope was withdrawn and the ureter was then dilated to 13-S[place] Arabian using the 13-S[place] ureteral reentry sheath and obturator. The 8.5-[place] semirigid ureteroscope was then passed through the urethra, into the bladder and into the left ureter. The ureteroscope was adva nced up to the calculus. The calculus was broken down into multiple smaller fragments using the 360 fiber and the holmium laser at a setting of 600 mJ and 6 cps. The largest calculus fragment was then retrieved using a 1.9-Saudi Arabian nitinol stone basket. At the completion the procedure no fragments remained within the ureter. The ureteroscope was withdrawn. The 21-S[place] Arabian cystoscope sheath was backloaded over the Glidewire and reintroduced into the bladder. A 6-S[place] Arabian by 24 cm double-J catheter was then advanced over the Glidewire and positioned so that the proximal end coiled in the region of the left renal pelvis and the distal and coiled in the bladder. The Glidewire and cystoscope were withdrawn and the procedure was terminated. The patient tolerated the procedure well and left the operative room awake in satisfactory condition. There is no blood loss. The patient will be evaluated in the recovery room by cardiologydue to his atrial fibrillation. He will be discharged either later today or tomorrow and will return in 7-10 days at which time his double-J catheter will be removed.
[2019-05-27 18:21] VITALS: RESP 18
[2019-05-27] MEDS: METOPROLOL TARTRATE 25 MG TAB PO SCH (18:23)
[2019-05-28] MEDS: SODIUM CHLORIDE 0.9% 1,000 ML IV SCH ×2 (06:23→06:24)
[2019-05-28] MEDS: BRIMONIDINE TARTRATE 0.2% DROPS 5 ML BTL LEFT EYE SCH ×2 (06:23→09:12)
[2019-05-28] MEDS: LISINOPRIL-HCTZ 10-12.5 MG 1 EACH TAB PO SCH (09:12)
[2019-05-28] MEDS: TAMSULOSIN 0.4 MG CAP.ER.24H PO SCH (09:12)
[2019-05-28] MEDS: METOPROLOL TARTRATE 25 MG TAB PO SCH (09:12)
--- NOTE | 2019-05-28 10:50 | P.PN ---
Subjective Progress Note Date: 05/28/19 the patient underwent left ureteroscopy with laser lithotripsy and stent placement by yesterday. He developed intraoperative atrial fibrillation. He has done well overnight due to. His atrial fibrillation remains at a slower rate. He has minimal to no pain from his stone manipulation. He has a slight amount of blood in the urine is expected because of the stent. From a urologic standpoint he can be discharged home when cleared by cardiology who will see him for his atrial fibrillation. From urologic standpoint he can be placed on anticoagulation. His condition is good. He understands that he needs to contact Dr. Clarke next week for follow-up. Objective - Vital Signs Vital signs: Vital Signs Temp 97.9 F 05/28/19 00:00 Pulse 70 05/28/19 08:00 Resp 18 05/28/19 08:00 BP 121/72 05/28/19 04:00 Pulse Ox 96 05/28/19 04:00 Intake & Output 05/27/19 05/28/19 05/28/19 18:59 06:59 18:59 Intake Total 450 100 Output Total 26 Balance 424 100 Weight 101.3 kg Intake: IV 450 Oral 100 Output: Urine 25 Estimated Blood Loss 1 Other: Voiding Method Toilet Toilet # Voids 1 2 - Labs CBC & Chem 7: 05/25/19 14:50 05/26/19 08:56
--- NOTE | 2019-05-28 11:01 | ECHOF ---
Referral Reason:new onset A-Fib MEASUREMENTS -------- HEIGHT: 182.9 cm WEIGHT: 99.8 kg BP: 130/86 RVIDd: 3.0 cm (< 3.3) IVSd: 1.7 cm (0.6 - 1.1) LVIDd: 4.9 cm (3.9 - 5.3) LVPWd: 1.7 cm (0.6 - 1.1) IVSs: 2.0 cm LVIDs: 3.7 cm LVPWs: 2.4 cm LAESV Index (A-L): 39.16 ml/m Ao Diam: 3.0 cm (2.0 - 3.7) AV Cusp: 2.0 cm (1.5 - 2.6) LA Diam: 3.4 cm (2.7 - 3.8) AV maxP.70 mmHg AV meanP.53 mmHg AR PHT: 493 ms FINDINGS -------- A FIB WITH RVR This was a technically difficult study with suboptimal apical views. The left ventricular size is normal. There is moderate concentric left ventricular hypertrophy. T here is mild global hypokinesis of LV . Overall left ventricular systolic function is mildly impair ed with, an EF between 45 - 50 %. Left ventricular fillimg pressure cannot be estimated due to Atri al fibrillation. The right ventricle is mildly enlarged. LA is moderately dilated 34-39 ml/m2 The right atrium is mildly enlarged. Lumason used Interatrial and interventricular septum intact. There is mild aortic regurgitation. There is mild aortic stenosis present. Peak/mean gradient acr oss the Aortic Valve is 25.70mmHg / 16.53mmHg. Mild mitral annular calcification present. Mild mitral regurgitation is present. Mild tricuspid regurgitation present. There is no evidence of pulmonary hypertension. The right v entricular systolic pressure, as measured by Doppler, is {RVSP}. There is no pulmonic regurgitation present. The aortic root size is normal. IVC Not well visulized. There is no pericardial effusion. CONCLUSIONS -------- 1. A FIB WITH RVR 2. This was a technically difficult study with suboptimal apical views. 3. The left ventricular size is normal. 4. There is moderate concentric left ventricular hypertrophy. 5. There is mild global hypokinesis of LV . 6. Overall left ventricular systolic function is mildly impaired with, an EF between 45 - 50 %. 7. Left ventricular fillimg pressure cannot be estimated due to Atrial fibrillation. 8. The right ventricle is mildly enlarged. 9. LA is moderately dilated 34-39 ml/m2 10. The right atrium is mildly enlarged. 11. Lumason used 12. Interatrial and interventricular septum intact. 13. There is mild aortic regurgitation. 14. There is mild aortic stenosis present. 15. Peak/mean gradient across the Aortic Valve is 25.70mmHg / 16.53mmHg. 16. Mild mitral annular calcification present. 17. Mild mitral regurgitation is present. 18. Mild tricuspid regurgitation present. 19. There is no evidence of pulmonary hypertension. 20. The right ventricular systolic pressure, as measured by Doppler, is {RVSP}. 21. There is no pulmonic regurgitation present. 22. The aortic root size is normal. 23. IVC Not well visulized. 24. There is no pericardial effusion. PULP REFINER OPERATOR: Aliyah Prado RDCS
--- NOTE | 2019-05-28 11:30 | P.CRDCN ---
History of Present Illness Consult date: 05/28/19 Requesting physician: Donell Smith Consult reason: atrial fibrillation History of present illness: this is an 78-year-old gentleman with history of hypertension who follows with Dr. Jones as his primary care doctor. He was admitted to the hospital with symptoms of left-sided abdominal pain was severe in nature. He was noted to have a 3 mm mid left ureteral calculus with mild hydronephrosis.he underwent cystoscopy with left ureter scoped the lithotripsy and placement of a left elbow catheter yesterdayby Dr. Clarke.in the recovery room the patient was found to be in atrial fibrillation with rapid ventricular response, and for this reason a cardiology consultation was requested. According to the patient, he has no prior history of atrial fibrillation, and recently underwent a physical in the office, stating that there is no mention of atrial fibrillation at that time or in the past.patient denies any palpitations, no heart racing, no dizziness lightheadedness or shortness of breath.echocardiogram with Doppler study was performed which revealed an ejection fraction of 45-50%. On review of the rhythm strips, patient continues to be in atrial fibrillation this morning,his heart rate is in the 70s, blood pressure 120/70.White blood cell count 12.5, hemoglobin 14.9, platelet count 120. Sodium 138, potassium 4.0, BUN 50 and creatinine 2.0 on arrival 44 and 1.7 this morning. Potassium this mor sarai is 3.9.upon review of the patient's rhythm strips, he is currently in atrial fibrillation, he did have a run of 10 nonsustained ventricular tachycardia the night. Patient has been initiated on Lopressor.he also has been cleared by urology to initiate anticoagulation. At the time of my examination this morning patient feels well, he has no complaints and is quite eager to be discharged home today. Past Medical History Past Medical History: Hypertension Additional Past Medical History / Comment(s): glaucoma History of Any Multi-Drug Resistant Organisms: None Reported Past Surgical History: No Surgical Hx Reported Past Psychological History: No Psychological Hx Reported Smoking Status: Never smoker Past Alcohol Use History: Rare Past Drug Use History: None Reported Medications and Allergies Home Medications Medication Instructions Recorded Confirmed Type Enalapril/Hydrochlorothiazide 1 tab PO DAILY 05/19/18 05/25/19 History [Vaseretic 5-12.5 mg] Hydrocodone/Acetaminophen [[place] 1 tab PO Q6HR PRN #12 tab 05/24/19 05/25/19 Rx 5-325] Tamsulosin [Flomax] 0.4 mg PO DAILY #7 cap 05/24/19 05/25/19 Rx Brimonidine Tartrate [Alphagan P 1 drops LEFT EYE BID 05/25/19 05/25/19 History 0.2% Ophth Soln] Latanoprost/Pf [Latanoprost 0.005% 1 drop BOTH EYES DAILY 05/25/19 05/25/19 History Eye Drop] Allergies Allergy/AdvReac Type Severity Reaction Status Date / Time No Known Allergies Allergy Verified 05/25/19 18:08 Physical Exam Vitals: Vital Signs Temp Pulse Pulse Resp BP BP Pulse Ox 05/28/19 08:00 70 18 05/28/19 04:00 68 18 121/72 96 05/28/19 00:00 97.9 F 73 18 95/52 96 05/27/19 20:00 97.8 F 87 18 114/67 96 05/27/19 18:17 98.3 F 96 18 130/87 93 L 05/27/19 17:32 102 H 16 134/79 100 05/27/19 17:15 87 16 133/73 100 05/27/19 17:00 100 16 137/76 100 05/27/19 16:42 96.9 F L 114 H 14 112/70 97 05/27/19 14:51 98.6 F 87 16 130/86 93 L 05/27/19 14:32 97.6 F 81 16 127/76 100 Intake and Output 05/27/19 05/28/19 05/28/19 22:59 06:59 14:59 Intake Total 400 100 Output Total 26 Balance 374 100 Intake: IV 400 Oral 100 Output: Urine 25 Estimated Blood Loss 1 Other: Voiding Method Toilet Toilet Toilet # Voids 1 2 Weight 101.3 kg PHYSICAL EXAMINATION: GENERAL:78-year-old gentleman in no acute distress at the time of my examination HEENT: Head is atraumatic, normocephalic. Pupils equal, round. Sclera anicteric. Conjunctiva are clear. Mucous membranes of the mouth are moist. Neck is supple. There is no elevated jugular venous pressure.no carotid bruit is heard. HEART EXAMINATION:heart S1 and S2 irregularly irregular CHEST EXAMINATION: Lungs are clear to auscultation and precussion. No chest wall tenderness is noted on palpation or with deep breathing. On the patient's back, he is noted this morning to have a rash, not noted anywhere else. ABDOMEN: Soft, nontender. Bowel sounds are heard. No organomegaly noted. EXTREMITIES: 2+ peripheral pulses with no evidence of peripheral edema and no calf tenderness noted NEUROLOGIC patient is awake, alert and oriented X3. . Results 05/25/19 14:50 05/26/19 08:56 Current Medications Generic Name Dose Route Start Last Admin Trade Name Freq PRN Reason Stop Dose Admin Hydrocodone Bitart/Acetaminophen 1 each 05/25/19 20:08 05/26/19 00:46 [place] 5-325 PO 1 each Q6HR PRN Administration Pain Brimonidine Tartrate 1 drops 05/25/19 21:00 05/28/19 09:12 Alphagan P 0.2% Ophth Soln LEFT EYE 1 drops BID VALERI Administration Lisinopril/HCTZ 1 each 05/26/19 09:00 05/28/19 09:12 Zestoretic 10-12.5 PO 1 each DAILY VALERI Administration Sodium Chloride 1,000 mls @ 100 mls/hr 05/25/19 17:15 05/28/19 06:24 Saline 0.9% IV Not Given .Q10H VALERI Lactated Ringer's 1,000 mls @ 20 mls/hr 05/26/19 13:57 05/27/19 11:10 Lactated Ringers IV Not Given .Q24H VALERI Ketorolac Tromethamine 15 mg 05/25/19 17:14 05/26/19 19:17 Toradol IVP 05/30/19 17:15 15 mg Q6HR PRN Administration Moderate Pain Latanoprost 1 drops 05/26/19 09:00 05/27/19 07:27 Xalatan 0.005% BOTH EYES 1 drops DAILY VALERI Administration Lidocaine HCl 0.1 ml 05/26/19 13:57 .Xylocaine 1% Inj (10mg/Ml) For Iv Start INTRADERMA PER PROTOCOL PRN IV Start Metoprolol Tartrate 25 mg 05/27/19 21:00 05/28/19 09:12 Lopressor PO 25 mg BID VALERI Administration Morphine Sulfate 4 mg 05/25/19 17:14 05/27/19 07:27 Morphine Sulfate (Inj) IV 4 mg Q4HR PRN Administration Severe Pain Naloxone HCl 0.2 mg 05/25/19 17:14 Narcan IV Q2M PRN Opioid Reversal Ondansetron HCl 4 mg 05/25/19 17:14 Zofran IVP Q8HR PRN Nausea And Vomiting Tamsulosin HCl 0.4 mg 05/26/19 08:30 05/28/19 09:12 Flomax PO 0.4 mg PC-[id number] VALERI Administration Intake and Output 05/27/19 05/28/19 05/28/19 22:59 06:59 14:59 Intake Total 400 100 Output Total 26 Balance 374 100 Intake: IV 400 Oral 100 Output: Urine 25 Estimated Blood Loss 1 Other: Voiding Method Toilet Toilet Toilet # Voids 1 2 Weight 101.3 kg 05/25/19 14:50 05/26/19 08:56 EKG Interpretations (text) EKG shows atrial fibrillation with moderately rapid ventricular response. Assessment and Plan Plan: assessment and plan #1 atrial fibrillation, exact duration unknown, persistent at this time. #2 hypertension #3 status post cystoscopy with left ureteroscopy, lithotripsy and placement of double-J catheter for a left ureteral calculus #4 One run of 10 nonsustained ventricular tachycardia Plan Echocardiogram with Doppler study was performed which revealed an ejection fraction of 45-50%.we will check a magnesium level and TSH level this morning coughed up blood that has been drawn, continue his lisinopril, add metoprolol 25 mg one tablet by mouth twice a day to his medication regime. We will also start the patient on Eliquis 5 mg one tablet by mouth twice a day for anticoagulation. Follow-up with Dr. VC Mendes in the office post discharge and follow-up with Dr. Jones. DNP note has been reviewed, I agree with a documented findings and plan of care. Patient was seen and examined.
[2019-05-28 11:39] VITALS: BP 107/65; PULSE 84; TEMP 97.4
[2019-05-28 11:48] LABS: Magnesium 2.2 mg/dL (1.6-2.3)
[2019-05-28] MEDS ORDERED: APIXABAN 5 MG TAB PO SCH (21:00)
--- NOTE | 2019-05-30 08:04 | FL ---
Fluoroscopy HISTORY: Cystoscopy with lithotripsy 39 seconds fluoroscopy time supplied to the referring clinician. 1 intraoperative C-arm images docum ent the procedure. See dictated report from urology.
--- NOTE | 2019-06-01 12:39 | CDI ---
Documentation Clarification Form Date: 06/01/2019 12:17:38 PM From: Melodie Islas RN, CCDS Admit Date: 05/27/2019 01:18:00 PM Patient Name: Donell London Visit Number: [id number] Discharge Date: 05/28/2019 01:15:00 PM ATTENTION: The Clinical Documentation Specialists (CDI) and [facility] Coding Staff appreciate your assistance in clarifying documentation. Please respond to the clarification below the line at the bottom and electronically sign. The CDI & [facility] Coding staff will review the response and follow-up if needed. Please note: Queries are made part of the Legal Health Record. If you have any questions, please contact the author of this message via ITS. Dr. Corey Clarke Intraoperative atrial fibrillation is documented and requires further clarification. Patients admitting Diagnosis: left urethral calculus Post-Operative Diagnosis: distal left urethral calculus Procedure performed: Cystoscopy with left ureteroscopy, lithotripsy and placement of left double-J catheter History/Risk Factors: HTN Clinical Indicators: 05/27 OR report: The patient was taken the operating suite. He was noted to be in atrial fibrillation. General anesthesia via orotracheal intubation was instituted." 05/28 Urology: "He developed intraoperative atrial fibrillation. His atrial fibrillation remains at a slower rate. From a urologic standpoint he can be discharged home when cleared by cardiology who will see him for his atrial fibrillation." Treatment: Consults: 05/28 Cardiology: "atrial fibrillation, exact duration unknown, persistent at this time." Tenormin 25 mg po qd In order to accurately reflect this patients severity of illness, please clarify if the intraoperative atrial fib diagnosis, as the patient was noted to be in atrial fib before the procedure started is: Atrial Fibrillation r/t the surgical procedure Atrial Fibrillation related to the patients underlying medical comorbidities or other cause (please specify) Other, please specify ____ Unable to determine (Last Revision: September 2018) You will need to ask the FACTORY ENGINEER whether the at fib was present in the preop area or only noted in the OR. It was not clear to me at that time. His name is Patrick. SANCHEZ
== END 2019-05-28 13:15 | disposition home or self-care (01) ==
LOC: EC 14:29 → 4MS4W 17:14 → INTOOBSV 05-27 13:18 → OBSVTOIN 05-27 13:18 → 3SCARD 05-27 17:15 → UNDODISIN 05-28 13:15
PROVIDERS: ADMIT Urology; ATTEND Urology
DX: N13.2 Hydronephrosis with renal and ureteral calculous obstruction (principal); I47.2 Ventricular tachycardia; I48.19 Other persistent atrial fibrillation; I10 Essential (primary) hypertension; N17.9 Acute kidney failure, unspecified; Z79.01 Long term (current) use of anticoagulants; Z79.899 Other long term (current) drug therapy; Z87.442 Personal history of urinary calculi; H40.9 Unspecified glaucoma
CPT/HCPCS: 96374; 96375; 99285; 36415; 93005; 80053; 80048; 83735; 84443; 85025; 81001; 82365; 74420; 74018 ×2; 52356; G0378 ×5; C8929; C2625; C1758; C1769; J2270 ×2; J1100; J2405 ×2; J0690; J2001; J0696; J3010; J1885 ×2; J2370; J0330; J2704; Q9950; Q9967; 93306; 96361; 96376

== ENCOUNTER → 2021-02-02 | Outpatient (CLI) | payer OTHER ==
[2021-02-02 11:57] LABS: Basophils # (A) 0.05 X 10*3/uL (0.00-0.10); Basophils % (A) 0.7 %; Eosinophils # (A) 0.13 X 10*3/uL (0.04-0.35); Eosinophils % (A) 1.8 %; HCT 48.3 % (39.6-50.0); HGB 16.3 g/dL (13.0-17.0); Lymphocytes # (A) 1.41 X 10*3/uL (0.90-5.00); Lymphocytes % (A) 19.3 %; MCH 31.8 pg (27.0-32.0); MCHC 33.7 g/dL (32.0-37.0); MCV 94.3 fL (80.0-97.0); Mean Platelet Volume 11.2 fL (9.5-12.2); Monocytes # (A) 0.63 X 10*3/uL (0.20-1.00); Monocytes % (A) 8.6 %; Neutrophils # (A) 5.07 X 10*3/uL (1.80-7.70); Neutrophils % (A) 69.3 %; Platelet Count 175 X 10*3/uL (140-440); RBC 5.12 X 10*6/uL (4.40-5.60); RDW 12.4 % (11.5-14.5); WBC 7.31 X 10*3/uL (4.50-10.00)
[2021-02-02 22:41] LABS: African American GFR (CKD) 64.9 (60.0-200.0); Albumin 4.2 g/dL (3.80-4.90); Albumin/Globulin Ratio 1.5 (1.60-3.17); Anion Gap 14.2 mmol/L (4.00-12.00); BUN/Creat Ratio 24.17 Ratio (12.00-20.00); Calcium 9.6 mg/dL (8.7-10.3); Carbon Dioxide 23.8 mmol/L (21.6-31.8); Chol/HDL Ratio 3.84; Globulin 2.8 g/dL (1.6-3.3); LDL Cholesterol,Calculated 102.2 mg/dL (0.0-131.0); Potassium 4.3 mmol/L (3.5-5.5); Total Bilirubin 2.6 mg/dL (0.3-1.2); VLDL Calculation 22.8 mg/dL (5.00-40.00)
== END | disposition home or self-care (01) ==
LOC: LABWHC1 08:02
PROVIDERS: ATTEND Internal Medicine
DX: E78.5 Hyperlipidemia, unspecified (principal); I10 Essential (primary) hypertension; R19.7 Diarrhea, unspecified
CPT/HCPCS: 36415; 80053; 80061; 85025

== ENCOUNTER → 2021-04-09 | Outpatient (CLI) | payer OTHER ==
[2021-04-10 16:42] LABS: Gliadin AB IgA, Deaminated NEGATIVE (NEGATIVE); Gliadin AB IgA, Unit 9.3 U/mL; Gliadin AB IgG, Deaminated NEGATIVE (NEGATIVE)
== END | disposition home or self-care (01) ==
LOC: LABWHC1 12:05
PROVIDERS: ATTEND Internal Medicine Gastroenterology
DX: K52.9 Noninfective gastroenteritis and colitis, unspecified (principal)
CPT/HCPCS: 36415; 83516; 85652; 86140

== ENCOUNTER → 2022-03-27 | Outpatient (CLI) | payer OTHER ==
--- NOTE | 2022-03-27 09:36 | CA ---
Transthoracic Echo Report Name: Donell London Age: 81 Gender: M : 1940 Exam Date: 03/27/2022 08:26 Exam Location: [facility] Ht (in): 72 Wt (lb): 204 Ordering Physician: Cory Keane MD Attending/Referring Phys: Live Out Nanny Wendy Oconnor RDCS Procedure CPT: Indications: I35.0 Nonrheumatic aortic (valve) stenosis Cardiac Hx: Technical Quality: Good Contrast 1: Total Dose (mL): Contrast 2: Total Dose (mL): MEASUREMENTS (Male / Female) Normal Values 2D ECHO LV Diastolic Diameter PLAX 5.7 cm 4.2 - 5.9 / 3.9 - 5.3 cm LV Systolic Diameter PLAX 3.7 cm IVS Diastolic Thickness 1.2 cm 0.6 - 1.0 / 0.6 - 0.9 cm LVPW Diastolic Thickness 1.1 cm 0.6 - 1.0 / 0.6 - 0.9 cm LV Relative Wall Thickness 0.4 RV Internal Dim ED PLAX 3.2 cm LVOT Diameter 2.8 cm LA Systolic Diameter LX 3.8 cm 3.0 - 4.0 / 2.7 - 3.8 cm LA Volume 107.6 cm??? 18 - 58 / 22 - 52 cm??? M-MODE Aortic Root Diameter MM 3.4 cm MV E Point Septal Separation 0.9 cm AV Cusp Separation MM 1.5 cm DOPPLER AV Peak Velocity 252.3 cm/s AV Peak Gradient 25.5 mmHg AV Mean Velocity 169.7 cm/s AV Mean Gradient 13.2 mmHg AV Velocity Time Integral 55.1 cm AI Peak Velocity 327.9 cm/s AI Peak Gradient 43.0 mmHg AI Pressure Half Time 854.0 ms LVOT Peak Velocity 73.4 cm/s LVOT Peak Gradient 2.2 mmHg AV Area Cont Eq pk 1.8 cm??? MV Area PHT 5.0 cm??? MV Deceleration Time 144.0 ms TR Peak Velocity 275.8 cm/s TR Peak Gradient 30.4 mmHg Right Ventricular Systolic Press 35.4 mmHg FINDINGS Left Ventricle Left ventricular ejection fraction is estimated at 45-50 %. Mildly increased septal wall thickness. Left ventricular cavity size normal. Right Ventricle Normal right ventricular size and function. Mild pulmonary hypertension. Right Atrium Normal right atrial size. Left Atrium Severely increased left atrial volume. Mildly increased left atrial area. No evidence for an atrial septal defect. Mitral Valve Mitral valve thickened. Mitral annular calcification. Trace mitral regurgitation. Aortic Valve Bicuspid aortic valve. Moderate thickened aortic valve, [id number] aortic regurgitation. Mild to moderate aortic stenosis with a peak gradient of 26 mmHg and a mean gradient of 13 mmHg. Tricuspid Valve Mild tricuspid regurgitation. Pulmonic Valve Structurally normal pulmonic valve. Pericardium Normal pericardium. No pericardial effusion. Aorta Normal size aortic root and proximal ascending aorta. CONCLUSIONS Left ventricular ejection fraction 45-50% Mild increased left ventricular wall thickness RVSP 35 Mild to moderately dilated left atrium Mitral annular calcification Trace mitral regurgitation Bicuspid aortic valve with mild to moderate aortic regurgitation and mild to moderate aortic stenosis Mild tricuspid regurgitation Previewed by: Dr. Barrie Bates DO (Electronically Signed) Final Date: 27 March 2022 09:35
== END | disposition home or self-care (01) ==
LOC: RADECHMAIN 08:04
PROVIDERS: ATTEND Internal Medicine
DX: I08.3 Combined rheumatic disorders of mitral, aortic and tricuspid valves (principal)
CPT/HCPCS: 93306

== ENCOUNTER → 2023-01-08 | Outpatient (CLI) | payer OTHER ==
--- NOTE | 2023-01-08 19:29 | US ---
EXAMINATION TYPE: US kidneys/renal and bladder DATE OF EXAM: 01/08/2023 COMPARISON: NONE CLINICAL INDICATION: Male, 82 years old with history of N18.13 CKD; CKD EXAM MEASUREMENTS: Right Kidney: 11.3 x 5.8 x 4.5 cm Left Kidney: 12.1 x 6.1 x 5.0 cm Right Kidney: A few cysts are present, largest measuring 3.1 x 4.3 x 3.0cm appears to be a parapelvic cyst. No hydronephrosis. Left Kidney: no evidence of hydronephrosis Bladder: Under distention limits evaluation. IMPRESSION: 1. No hydronephrosis. 2. A few cysts within the right kidney, largest are parapelvic cysts measuring up to 4.3 cm. 3. Underdistention of the bladder limits its evaluation.
== END | disposition home or self-care (01) ==
LOC: RADUSWWP 15:32
PROVIDERS: ATTEND Internal Medicine
DX: N18.31 Chronic kidney disease, stage 3a (principal); N28.1 Cyst of kidney, acquired
CPT/HCPCS: 76770